=== PATIENT | female | born 1960 | race Caucasian/White ===

== ENCOUNTER 2018-05-22 13:21 | Emergency (ER) | payer OTHER ==
[~2018-05-22] VITALS: Ht 160 cm; Wt 88.5 kg
[2018-05-22] MEDS ORDERED: ASPI81TA44 PO (13:37)
--- NOTE | 2018-05-22 13:40 | NUR ---
Manual pressure to nose continues, bleeding controlled@the moment, monitored patient closely
[2018-05-22] MEDS ORDERED: OXYMETAZOLINE NASAL 0.05% 15 ML SPRAY NS ONE ×2 (14:10→14:15)
[2018-05-22] MEDS ORDERED: EPINEPHRINE 1 MG/1 ML AMP ONE (14:55)
--- NOTE | 2018-05-22 15:40 | NUR ---
Patient discharged to home in stable conditon. Written and verbal after care instructions given. Patient verbalizes understanding of instructions. Stressed follow up with ENT (pt stated she has an appointment on Thursday) or return to ER for worsening s/s.
[2018-05-22 15:41] VITALS: BP 157/96
[2018-05-22] MEDS ORDERED: EPINEPHRINE-PF 1:1000 1 MG/ML AMPUL IM ONE (15:44)
== END 2018-05-22 15:42 | disposition home or self-care (01) ==
LOC: ER 13:23
DX: R04.0 Epistaxis (principal); I10 Essential (primary) hypertension; Z88.1 Allergy status to other antibiotic agents; Z88.8 Allergy status to other drugs, medicaments and biological substances
CPT/HCPCS: 30901; A4663; J0171